=== PATIENT | male | born 1965 | race African-American/Black ===

== ENCOUNTER 2019-12-30 15:57 | Emergency (ER) | payer MEDICAID ==
[~2019-12-30] VITALS: Ht 175.3 cm; Wt 89.8 kg
[2019-12-30 16:05] VITALS: BP 109/71
--- NOTE | 2019-12-30 16:07 | NUR ---
Patient ambulated to bed 6. RN is evaluating the patient at bedside.
--- NOTE | 2019-12-30 16:15 | NUR ---
PT C/O INTERMITTENT NON-RADIATING CRAMPING LOWER ABDOMINAL PAIN SINCE 2017. PT DENIES N/V/D OR LOWER BACK PAIN. ABDOMEN IS SOFT, FLAT, AND NON-TENDER TO PALPATION. PT REPORTS HE NEEDS NORCO PRESCRIPTION. AAOX4 WITH EVEN AND STEADY GAIT; LUNGS CLEAR BL; HR EVEN AND REGULAR; PT DENIES ANY FEVER, CP, SOB, OR COUGH AT THIS TIME; PATIENT STATES PAIN OF 9/10 AT THIS TIME; VSS; PATIENT POSITIONED FOR COMFORT; HOB ELEVATED; BEDRAILS UP X1; BED DOWN. ER MD MADE AWARE OF PT STATUS.
--- NOTE | 2019-12-30 16:46 | NUR ---
CASSIDY Lozoya is evaluating the patient at bedside.
[2019-12-30 17:25] VITALS: BP 103/68
--- NOTE | 2019-12-30 17:26 | NUR ---
Patient discharged with v/s stable. Written and verbal after care instructions given and explained. Patient alert, oriented and verbalized understanding of instructions. Ambulatory with steady gait. All questions addressed prior to discharge. ID band removed. Patient advised to follow up with PMD. Rx of Ibuprofen 600mg given. Patient educated on indication of medication including possible reaction and side effects. Opportunity to ask questions provided and answered. Contact information given for Dr Garcia, Informed to contact surgeon regarding hernia
== END 2019-12-30 17:26 | disposition home or self-care (01) ==
LOC: MED 15:57
DX: K40.90 Unilateral inguinal hernia, without obstruction or gangrene, not specified as recurrent (principal)
CPT/HCPCS: 99282